=== PATIENT | female | born 2000 | race Caucasian/White ===

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

== ENCOUNTER 2018-01-28 02:03 | Inpatient (IN) | payer MEDICAID ==
[2017-10-28 07:14] VITALS: Wt 72.1 kg
[~2018-01-28 02:03] MED LIST changes: +NITR-105 PO; +PREN-127 PO
[2018-01-28] MEDS ORDERED: OXYTOCIN 30 UNIT/D5LR 500 ML 500 ML IV PRN ×2 (02:36→03:12)
[2018-01-28 02:52] VITALS: BP 128/78
[2018-01-28] MEDS ORDERED: FAMOTIDINE(*) 20MG/50ML PREMIX 50 ML IVPB PRN (03:12)
[2018-01-28] MEDS ORDERED: LR(*) 1000 ML BAG 1,000 ML IV SCH (03:12)
[2018-01-28] MEDS ORDERED: FLUSH 10 ML SYR IVP PRN (03:15)
[2018-01-28] MEDS ORDERED: METOCLOPRAMIDE 10 MG/2 ML SDV IVP PRN (03:15)
[2018-01-28] MEDS ORDERED: fentaNYL CITR 100 MCG/2 ML AMP IVP PRN (03:15)
[2018-01-28] MEDS ORDERED: LIDOCAINE 1% LOCAL 300 MG/30ML INJ PRN (03:15)
[2018-01-28] MEDS ORDERED: LIDOCAINE/SOD BICARB 8.4% SYR SC PRN (03:15)
[2018-01-28] MEDS ORDERED: FAMO20TA28 PO (03:28)
[2018-01-28] MEDS: LR(*) 1000 ML BAG 1,000 ML IV PRN ×3 (03:33→08:07)
[2018-01-28] MEDS ORDERED: ePHEDrine 25 MG/5 ML DISP.SYR IVP PRN (03:40)
[2018-01-28] MEDS ORDERED: LIDO/EPI 2% MPF 1:200,000 20ML EPI PRN (03:40)
[2018-01-28] MEDS ORDERED: LIDOCAINE/PF 2% 200MG/10ML AMP 200 MG/10 ML AMPUL EPI PRN (03:40)
[2018-01-28] MEDS ORDERED: fentaNYL CITR 100 MCG/2 ML AMP IT PRN (03:40)
[2018-01-28] MEDS ORDERED: ONDANSETRON 4 MG/2 ML VIAL IVP PRN (03:40)
[2018-01-28] MEDS ORDERED: BUPIVACAINE 0.25% MPF INJ EPI PRN (03:40)
[2018-01-28] MEDS ORDERED: FENTANYL/ROPIVACAINE 100 ML BAG EPI PRN (03:40)
[2018-01-28 03:59] LABS: PLATELET COUNT, AUTOMATED 259 K/uL (150-450)
--- NOTE | 2018-01-28 08:05 | History & Physical ---
History of Present Illness Chief Complaint Contractions History of Present Illness 17yo at 39w1d presented with regular uterine contractions. She was noted to have cervical change from 4 to 5cm over a 90 minute period. She has some light bloody show. No LOF. +FM. No preeclampsia symptoms. PNC by W. PNR reviewed. uncomplicated. GBS negative. History Patient's Blood Type: A Positive Rubella Status: Immune (Will double check with [facility] via RN, as her says immune and nonreactive) Group B Strep Screen: Negative Obstetrical History: Primip Past Medical History: PMH: Mild depression PSH: None Allergies: Coded Allergies: pineapple (Verified Allergy, Unknown, 07/20/17) Social History: No T/E/D. Med Rec Home Meds Reported Medications Famotidine (PEPCID) 20 Mg Tablet, 20 MG PO QDAY, #10 TAB 01/28/18 Vits W-Ca,Fe,Fa(<1MG) ( VITAMINS) 1 Each Tablet, 1 EACH PO DAILY, TAB 10/28/17 Discontinued Reported Medications Nitrofurantoin Monohyd/M-Cryst (MACROBID 100 MG CAPSULE) 100 Mg Capsule, 100 MG PO BID for 7 Days, CAPSULE 10/28/17 Albuterol Sulfate (VENTOLIN HFA) 18 Gm Inh, 1-2 PUFF INH 3-4XD, INH 01/19/15 Review of Systems Constitutional: No Fever Eyes: No Vision Change Cardiovascular: No Chest Pain Respiratory: No Shortness of Breath, No Cough Gastrointestinal: No Nausea, No Vomiting, No Diarrhea Genitourinary: No Dysuria Psychiatric: Depression, No Anxiety Exam General Exam Vital Signs Vital Signs Date Time Temp Pulse Resp B/P (MAP) Pulse Ox O2 Delivery O2 Flow Rate FiO2 01/28/18 02:52 98.2 81 18 128/78 (95) Room Air General Apperance: Alert/Awake/No Acute Distress Neuro: No Gross deficits Eyes: Normal Extraocular Movement & Vison Cardiovascular: Regular Rate and Rhythm Respiratory: No Respiratory Distress, Clear to Auscultation Abdomen: Gravid - Non-Tender : Normal Musculoskeletal: No Weakness/Pain Extremities: No Cyanosis,Clubbing or Edema Integumentary: Skin Intact without Lesions or Rash Psychological: Alert & Oriented X3, Appropriate Mood & Affect Cervical Dialation: 6 Cervical Effacement (%): 80 Cervical Consistency: Soft Cervical Position: Mid Station: 0 Presentation: Vertex Uterine Contractions(Q min): 5 Uterine Contraction Strength: Moderate UC Resting Tone: Soft Fetus FHT Category: I Medical Decision Making Data Points Result Diagram: 01/28/18 0333 Pre-Admit Course Medical Record Review: Yes VTE Prophylasis: Adult Deep Vein Thrombosis/Pulmonary: No Pharmacological Contraindicati: Surgical Contraindication Mechanical Contraindications: Surgical Contraindication Assessment and Plan Problems: (1) Spontaneous onset of labor Assessment & Plan: 17yo at 39w1d presents in labor. She is comfortable with epidural, but her contractions spaced out slightly afterward. AROM with clear fluid. Will add pitocin augmentation if needed. (2) 39 weeks gestation of FERNANDA GUERRA MD Jan 28, 2018 07:07
--- NOTE | 2018-01-28 08:53 | Labor Progress Note ---
Labor Subjective Progress Notes Subjective COMFORTABLE WITH EPIDURAL Vaginal Discharge/Fluid: Clear Fluid Labor Pain: Comfortable Labor Objective Vital Signs Vital Signs Date Time Temp Pulse Resp B/P (MAP) Pulse Ox O2 Delivery O2 Flow Rate FiO2 01/28/18 02:52 98.2 81 18 128/78 (95) Room Air Cervical Dialation: 6 (PREVIOUS CHECK) Uterine Contractions(Q min): 3 Fetus Heart Tones: 120 Heart Tone Variabilty: Moderate FHT Category: II Other Result Diagram: 01/28/18 0333 Assessment and Plan Problems: (1) Active labor at term Assessment & Plan: WILL POSITION CHANGE, GIVE FLUIDS AND O2 IF NEEDED TO IMPROVE FHTS CATERINA DAS MD Jan 28, 2018 08:53
[2018-01-28] MEDS ORDERED: DLR(*) 1000 ML BAG 1,000 ML IV SCH (09:55)
[2018-01-28] MEDS ORDERED: DLR(*) 1000 ML BAG 1,000 ML IV ONE (10:12)
--- NOTE | 2018-01-28 10:43 | Labor Progress Note ---
Labor Subjective Progress Notes Subjective comfortable with epidural Labor Pain: Comfortable Labor Objective Vital Signs Vital Signs Date Time Temp Pulse Resp B/P (MAP) Pulse Ox O2 Delivery O2 Flow Rate FiO2 01/28/18 02:52 98.2 81 18 128/78 (95) Room Air Station: +1 Presentation: Vertex Uterine Contractions(Q min): 3 Fetus Heart Tones: 110 Heart Tone Variabilty: Moderate Other Result Diagram: 01/28/18 0333 Assessment and Plan Problems: (1) Active labor at term Assessment & Plan: compleete will trial push to see if tolerates CATERINA DAS MD Jan 28, 2018 10:43
[2018-01-28] MEDS ORDERED: INFLUENZA VIRUS VAC 0.5 ML SYR IM ONLY ONE (11:50)
[2018-01-28] MEDS ORDERED: GLYCERIN/WITCH HAZEL LEAF 1 PK TP PRN (11:50)
[2018-01-28] MEDS ORDERED: MAGNESIUM HYDROXIDE* 30ML UDCP PO PRN (11:50)
[2018-01-28] MEDS ORDERED: ACETAMINOPHEN 325 MG TAB PO PRN (11:50)
[2018-01-28] MEDS ORDERED: LANOLIN OINT 7 GM TUBE TP PRN (11:50)
[2018-01-28] MEDS ORDERED: HYDROCORTISONE 2.5% CR 30GM TB PR PRN (11:50)
--- NOTE | 2018-01-28 11:53 | OB Delivery Note ---
Delivery Note Vaginal Delivery Type: Spont. Vaginal Delivery Delivery Date: Jan 28, 2018 Delivery Time: 11:23 Estimated Gestational Age(wks): 39.1 Delivery Anesthesia: Epidural Sex: Male Infant Weight (gms): 3032 [place] Apgars: 1 Minute (8), 5 Minute (9) Repair Needed: Laceration, Superficial, Vaginal, Labial Estimated Blood Loss: 350 Delivery Complications: Nuchal Cord Notes: SPONTANEOUS LABOR, RECEIVED EPIDURAL, AROM PROGRESSED TO COMPLETE, PUSHED EFFECTIVELY, DELIVERED, SPONTANEOUS CRY AND MOVEMENT ALL 4 EXTREMITIES, CORD CLAMPED X2 CUT. REPAIR WITH 3-0 VICRYL, TOLERATED WELL Director Of Health Education in Attendence: No Copies to: CATERINA DAS MD, JOHN MD Jan 28, 2018 11:53
[2018-01-28] MEDS ORDERED: IBUPROFEN 800 MG TAB PO SCH (13:00)
[2018-01-28] MEDS: BENZOCAINE 20% 60 ML BTL TP PRN (14:16)
[2018-01-28 14:45] VITALS: BP 115/64
[2018-01-28 16:32] VITALS: BP 113/59
[2018-01-28 17:39] VITALS: BP 112/58
[2018-01-28] MEDS: HYDROmorphone HCL 2 MG TAB PO PRN (17:48)
[2018-01-28] MEDS ORDERED: METHYLERGONOVINE MAL 0.2MG/ML ONE (17:51)
[2018-01-28] MEDS ORDERED: METHYLERGONOVINE MAL 0.2MG/ML IM ONE (18:00)
[2018-01-28 18:18] VITALS: BP 118/59
[2018-01-28 20:00] VITALS: BP 139/77
[2018-01-28] MEDS: DOCUSATE CALCIUM 240 MG CAP PO SCH (21:00)
[2018-01-28] MEDS: MISOPROSTOL 200 MCG TAB PO SCH (21:08)
[2018-01-28] MEDS ORDERED: MISOPROSTOL 200 MCG TAB ONE (21:12)
[2018-01-28] MEDS: IBUPROFEN 800 MG TAB PO SCH (22:00)
[2018-01-29] VITALS (7 sets, daily range): BP systolic 111–122; BP diastolic 56–66
[2018-01-29] MEDS: MISOPROSTOL 200 MCG TAB PO SCH ×3 (02:55→15:00)
[2018-01-29] MEDS: IBUPROFEN 800 MG TAB PO SCH ×3 (05:20→23:20)
--- NOTE | 2018-01-29 05:25 | Anesthesia OB Pre-Anes Eval ---
History of Present Illness Anesthesia Start Date: Jan 28, 2018 Anesthesia Start Time: 03:50 OB Anesthesia Diagnosis: spontaneous labor Current Complication: obesity EDC: Jan 31, 2018 : 1 Para: 0 Pain Ratin Result Diagram: 01/28/18 0333 Weight (Pounds): 159 BMI Calculated: 24.90 Past Medical History Medical History: no pertinent history Surgical History: no surgical history Attended Childbirth Classes?: No Hx Anesthesia Reactions: No Hx Family Anesthesia Reaction: No Home Meds Reported Medications Famotidine (PEPCID) 20 Mg Tablet, 20 MG PO QDAY, #10 TAB 01/28/18 Vits W-Ca,Fe,Fa(<1MG) ( VITAMINS) 1 Each Tablet, 1 EACH PO DAILY, TAB 10/28/17 Discontinued Reported Medications Nitrofurantoin Monohyd/M-Cryst (MACROBID 100 MG CAPSULE) 100 Mg Capsule, 100 MG PO BID for 7 Days, CAPSULE 10/28/17 Albuterol Sulfate (VENTOLIN HFA) 18 Gm Inh, 1-2 PUFF INH 3-4XD, INH 01/19/15 Allergies: Coded Allergies: pineapple (Verified Allergy, Unknown, 07/20/17) Anesthesia OB ROS Airway Class: l GI ROS: clear liquids, ice chips Last Solids Date: Jan 28, 2018 Last Solids Time: 18:00 ASA Classification: 2 Assessment and Plan Anesthesia Plan: LEB Anesthesia Stop Day: Jan 28, 2018 Anesthesia Stop Time: 11:15 Epidural Catheter Removal: Removed by: (Catheter removed by RN after delivery at convenient time, no adverse events reported.) GIANFRANCO TORRES CRNA Jan 28, 2018 04:42
--- NOTE | 2018-01-29 05:26 | Procedure Note ---
Anesthetic Placement Note Anesthesia Plan: LEB Permit for Anesthesia Signed: Yes Anesthesia Technique: Patient Sitting Anesthesia Prep: Betadine Interspace: L 3-4 Local Anesthetic: 1% Lidocaine, 25 Gauge Needle Amount Local - cc's: 2 Anesthesia Needle: 17g Touhholly/Sawyer Loss of Resistance: Normal Saline Depth of CYNDIE (cm): 6.5 Catheter Insertion (cm): 6 Catheter Type: Rich - Spring Wound Epidural Dressing: Tegaderm, Tape, Adhesive Napavine Anesthesia Tray: Lot Number ([id number]), Expiration Date (2019-02-19), Reference Number ([id number]) Anesthesia Medications: Epidural Test Dose: 1.5 Lido/Epi (1:200,000), Dose - mL (3), Time (0408), Negative (No symptoms IV or IT injection.) Epidural Loading Dose: 0.2% Ropivicaine, With Fentanyl 2mcg/ml, Dose - ml ( 15ml in 5ml increments), Time (0412) Epidural Infusion: 0.2% Ropivicaine, With Fentanyl 2mcg/ml, Start Time: (0422) Epidural Pump Setting: Bolus Dose - mL (4), Lockout - Minutes (15), Maintenance Rate - mL/hr (10), Maximum per Hour - mL (26) Complications: None Comment: Effective analgesia throughout labor and during delivery. GIANFRANCO TORRES CRNA Jan 28, 2018 04:45
--- NOTE | 2018-01-29 07:47 | Anesthesia Post Eval Note ---
Anesthesia Post Eval Note Amanda, afebrile. Pt able to participate in Eval: Yes Cardiovascular Status: Satisfactory Respiratory Status: Satisfactory Pain Managment: Satisfactory PO Nausea/Vomiting: Satisfactory Temperature Management: Satisfactory Mental Status: Satisfactory, Alert, Oriented X3 Post-Op Hydration Status: Satisfactory, Tolerating PO Well, Voiding w/o Difficulty Anesthesia Type: LEB Anesthesia Tolerance: No complications, no symptoms PDPH. GIANFRANCO TORRES UNDERGROUND MINE MACHINERY MECHANIC Jan 29, 2018 07:47
[2018-01-29] MEDS ORDERED: IBUP800T37 PO (08:03)
[2018-01-29] MEDS ORDERED: HYDR2TAB4 PO (08:03)
--- NOTE | 2018-01-29 08:05 | OB/GYN Discharge Summary ---
Discharge Summary Reason for Hosp/Final Diag: (1) Active labor at term (2) care following vaginal delivery Hospital Course & Plan: SPONTANEOUS LABOR , VAGINAL DELIVERY, ON DAY 1, Pain controlled, Tolerating diet and activity. Baby . Normal lochia. Lates Vital Signs Vital Signs Date Time Temp Pulse Resp B/P (MAP) Pulse Ox O2 Delivery O2 Flow Rate FiO2 01/29/18 04:00 98.5 72 16 117/57 (77) 97 01/28/18 14:45 Room Air Weight (Pounds): 159 Result Diagram: 01/29/18 0611 Condition: Improved Discharge: Home, Self [facility] Meds Active Scripts Ibuprofen (IBUPROFEN) 800 Mg Tablet, 1 TAB PO Q8H, #30 TAB 0 Refills Take with food every 8 hours. Prov:CATERINA ONEIL MD 01/29/18 Hydromorphone Hcl (HYDROMORPHONE HCL) 2 Mg Tablet, 2-4 MG PO Q4H for PAIN, #20 TAB 0 Refills Prov:CATERINA ONEIL MD 01/29/18 Reported Medications Famotidine (PEPCID) 20 Mg Tablet, 20 MG PO QDAY, #10 TAB 01/28/18 Vits W-Ca,Fe,Fa(<1MG) ( VITAMINS) 1 Each Tablet, 1 EACH PO DAILY, TAB 10/28/17 Discontinued Reported Medications Nitrofurantoin Monohyd/M-Cryst (MACROBID 100 MG CAPSULE) 100 Mg Capsule, 100 MG PO BID for 7 Days, CAPSULE 10/28/17 Albuterol Sulfate (VENTOLIN HFA) 18 Gm Inh, 1-2 PUFF INH 3-4XD, INH 01/19/15 Follow up with: Dr. Oneil [phone] Follow up in: 6 wks PP or PO Discharge Diet: As Tolerates Discharge Activity: Pelvic Rest Copies to: CATERINA ONEIL MD, JOHN MD Jan 29, 2018 08:05
--- NOTE | 2018-01-29 08:06 | OB/GYN Progress Note ---
OB Subjective Progress Notes Subjective Pain controlled, Tolerating diet and activity. Baby . Normal lochia. GI: POS Flatus, NEG Nausea, NEG Vomiting : Voiding Well Pain: Mild OB Objective Physical Exam Vital Signs Date Time Temp Pulse Resp B/P (MAP) Pulse Ox O2 Delivery O2 Flow Rate FiO2 01/29/18 04:00 98.5 72 16 117/57 (77) 97 01/28/18 14:45 Room Air General Appearance: Alert/Awake/No Acute Distress Neurological: No Gross deficits Eyes: Normal Extraocular Movement & Vison Cardiovascular: Regular Rate and Rhythm Respiratory: No Respiratory Distress, Clear to Auscultation Abdomen: Fundus Firm Extremities: No Cyanosis,Clubbing or Edema, No Edema Integumentary: Skin Intact without Lesions or Rash Psychological: Alert & Oriented X3, Appropriate Mood & Affect Result Diagram: 01/29/18 0611 Assessment and Plan Problems: (1) Active labor at term (2) care following vaginal delivery Assessment & Plan: Pain controlled, Tolerating diet and activity. Baby . Normal lochia. CATERINA DAS MD Jan 29, 2018 08:06
[2018-01-29] MEDS: DOCUSATE CALCIUM 240 MG CAP PO SCH ×2 (10:49→21:38)
[2018-01-29] MEDS: MULTIVITAMINS (PRENATAL) TAB PO SCH (10:49)
[2018-01-29] MEDS: HYDROmorphone HCL 2 MG TAB PO PRN (10:50)
[2018-01-29] MEDS ORDERED: MEASLES,MUMP,RUBELLA VAC 0.5ML SUBQ ONE (11:50)
[2018-01-29] MEDS ORDERED: DIPHTH/TETANUS/ACEL. PERTUSSIS IM ONLY ONE (11:50)
[2018-01-30 03:37] VITALS: BP 113/63
[2018-01-30] MEDS: HYDROmorphone HCL 2 MG TAB PO PRN (05:12)
[2018-01-30 06:41] VITALS: BP 96/52
--- NOTE | 2018-01-30 09:34 | OB/GYN Progress Note ---
OB Subjective Progress Notes Subjective Post day 2. Doing well, minimal discomfort at vaginal repair site. Vaginal bleeding improving. Nursing well. Passing flatus, no BM GI: POS Flatus, NEG Nausea, NEG Vomiting, NEG Bowel Movement : Voiding Well, Vaginal Bleeding, Moderate Pain: Moderate, Tolerating PO Pain Meds OB Objective Physical Exam Vital Signs Date Time Temp Pulse Resp B/P (MAP) Pulse Ox O2 Delivery O2 Flow Rate FiO2 01/30/18 03:37 97.3 66 14 113/63 (80) 97 Room Air Intake and Output 01/31/18 06:59 Intake Total 236 ml Balance 236 ml Intake Oral 236 ml General Appearance: Alert/Awake/No Acute Distress Neurological: No Gross deficits Eyes: Normal Extraocular Movement & Vison ENT: Normal Cardiovascular: Normal Rhythm & Peripheral Pulses, Regular Rate and Rhythm Respiratory: No Respiratory Distress, Clear to Auscultation Abdomen: Soft, Non-Tender, Non-Distended, Bowel Sounds Present, Fundus Firm, Tender Musculoskeletal: No Weakness/Pain Extremities: No Cyanosis,Clubbing or Edema, No Edema Integumentary: Skin Intact without Lesions or Rash Psychological: Alert & Oriented X3, Appropriate Mood & Affect Result Diagram: 01/29/18 0611 Assessment and Plan Post Day: 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
[2018-01-30] MEDS: MULTIVITAMINS (PRENATAL) TAB PO SCH (10:04)
[2018-01-30] MEDS: DOCUSATE CALCIUM 240 MG CAP PO SCH (10:04)
[2018-01-30] MEDS: BENZOCAINE 20% 60 ML BTL TP PRN (13:33)
== END 2018-01-30 14:12 | disposition home or self-care (01) | DRG 775 ==
LOC: OB 02:03
PROVIDERS: ADMIT Obstetrics & Gynecology; ATTEND Obstetrics & Gynecology
PROC: 10E0XZZ Delivery of Products of Conception, External Approach (ICD-10-PCS; principal; 2018-01-28)
PROC: 10907ZC Drainage of Amniotic Fluid, Therapeutic from Products of Conception, Via Natural or Artificial Opening (ICD-10-PCS; 2018-01-28)
PROC: 0HQ9XZZ Repair Perineum Skin, External Approach (ICD-10-PCS; 2018-01-28)
DX: O69.81X0 Labor and delivery complicated by cord around neck, without compression, not applicable or unspecified (principal); O70.0 First degree perineal laceration during delivery; Z3A.39 39 weeks gestation of pregnancy; Z37.0 Single live birth
CPT/HCPCS: 36415; 85025; 85027; 86850; 86900; 86901; J2210; J2405; J2590; J7120

== ENCOUNTER 2018-04-27 00:17 | Emergency (ER) | payer MEDICAID ==
[2017-10-28 07:14] VITALS: Wt 77.6 kg
[~2018-04-27 00:17] MED LIST changes: +FAMO20TA28 PO; +HYDR2TAB4 PO; +IBUP800T37 PO
[2018-04-27 00:22] VITALS: BP 110/71
[2018-04-27] MEDS ORDERED: AMOXICILLIN 500 MG CAP PO ONE (00:35)
[2018-04-27] MEDS ORDERED: ACET/HYDROC 5/325MG TH ER ONLY 2 TAB/BOTTLE PO ONE (00:35)
[2018-04-27] MEDS ORDERED: AMOX-362 PO (00:36)
--- NOTE | 2018-04-27 00:37 | ER Report ---
History and Physical Time Seen By MD: 00:25 Hx. of Stated Complaint: Pt reports having puss bubble in mouth. HPI/ROS CHIEF COMPLAINT: dental pain HISTORY OF PRESENT ILLNESS: This is a 17 year old female. She has pain in the lower left jaw, at 3rd molar. Had pain there during , but waited till delivery. Now with recurrent pain since delivering with swelling of the gum. Worried about possible abscess. She has had some fever today as well. Hot/cold and pressure worsen the pain. Allergies: Coded Allergies: pineapple (Verified Allergy, Unknown, 04/27/18) Home Meds Active Scripts Amoxicillin (AMOXICILLIN) 500 Mg Capsule, 1 CAP PO Q8H, #30 CAPSULE 0 Refills Prov:ALYSSIA AMBROSE MD 04/27/18 Reported Medications Famotidine (PEPCID) 20 Mg Tablet, 20 MG PO QDAY, #10 TAB 01/28/18 Discontinued Reported Medications Vits W-Ca,Fe,Fa(<1MG) ( VITAMINS) 1 Each Tablet, 1 EACH PO DAILY, TAB 10/28/17 Discontinued Scripts Ibuprofen (IBUPROFEN) 800 Mg Tablet, 1 TAB PO Q8H, #30 TAB 0 Refills Take with food every 8 hours. Prov:CATERINA DAS MD 01/29/18 Hydromorphone Hcl (HYDROMORPHONE HCL) 2 Mg Tablet, 2-4 MG PO Q4H for PAIN, #20 TAB 0 Refills Prov:CATERINA DAS MD 01/29/18 Reviewed Nurses Notes: Yes Hx Smoking: Yes Smoking Status: Former Smoker Exposure to Second Hand Smoke?: Yes Constitutional Vital Sign - Last 24 Hours 04/27/18 00:22 Temp 99.3 Pulse 117 Resp 16 B/P (MAP) 110/71 Pulse Ox 95 O2 Delivery Room Air Physical Exam General: Alert, no acute distress. ENT: Swelling and redness of the gums around the back lower molars. NO sign of abscess at this time. Neck: Has some lymphadenopathy and pain with palpation. Medical Decision Making ED Course/Re-evaluation ED Course Treat with Amoxicillin. Take Ibuprofen and Lortab for pain. Follow-up with dentist, they will call on Sunday. Decision to Disposition Date: Apr 27, 2018 Decision to Disposition Time: 00:36 Depart Departure Latest Vital Signs Vital Signs Date Time Temp Pulse Resp B/P (MAP) Pulse Ox O2 Delivery O2 Flow Rate FiO2 04/27/18 00:22 99.3 117 16 110/71 95 Room Air Impression: Primary Impression: Pain, dental Condition: Improved Disposition: HOME OR SELF-CARE New Scripts Amoxicillin (AMOXICILLIN) 500 Mg Capsule 1 CAP PO Q8H, #30 CAPSULE 0 Refills Prov: ALYSSIA AMBROSE MD 04/27/18 Patient Instructions: Abscess (ED) Additional Instructions: Take Amoxicillin 500mg three times a day. Take Ibuprofen 200mg over the counter tablets, take 4 every 8 hours for pain. Take Lortab 5/325, one every 4 hours tonight to help with severe pain. Call and arrange an appointment with your dentist, call on Sunday to schedule an appointment. ALYSSIA AMBROSE MD Apr 27, 2018 00:37
== END 2018-04-27 00:49 | disposition home or self-care (01) ==
LOC: ER 00:40
DX: K08.89 Other specified disorders of teeth and supporting structures (principal)
CPT/HCPCS: 99283